=== PATIENT | female | born 1995 | race Two or more races ===

== ENCOUNTER 2022-11-03 13:24 | Emergency (ER) | payer BC, OTHER ==
[~2022-11-03] VITALS: Ht 157.5 cm; Wt 66.2 kg
[2022-11-03] MEDS ORDERED: KETOROLAC TROMETHAMINE INJ 30 MG/ML VIAL IV ONE (15:00)
[2022-11-03] MEDS ORDERED: ONDANSETRON HCL/PF 4 MG/2 ML VIAL IV ONE (15:00)
[2022-11-03] MEDS ORDERED: ALBUTEROL FS 2.5 MG/0.5 ML VIAL.NEB NEB ONE ×2 (15:00→17:00)
[2022-11-03] MEDS ORDERED: ONDANSETRON HCL/PF 4 MG/2 ML VIAL ONE (15:19)
[2022-11-03] MEDS ORDERED: KETOROLAC TROMETHAMINE 15 MG/ML VIAL ONE (15:19)
[2022-11-03 15:28] LABS: BILIRUBIN,URINE NEGATIVE (NEGATIVE); COLOR,URINE YELLOW (YELLOW); LEUKOCYTE ESTERASE ,URINE NEGATIVE (NEGATIVE); NITRITE, URINE NEGATIVE (NEGATIVE); PROTEIN,URINE 1+ mg/dl (NEGATIVE); UGLUCOSE NEGATIVE (NEGATIVE); UROBILINOGEN,URINE 0.2 EU/dL (0.2)
[2022-11-03 15:31] LABS: PH,URINE >8.5 (5.0-8.0)
[2022-11-03 15:35] LABS: BACTERIA,URINE 2+ /HPF (None Seen); RBC,URINE 0-2 /HPF (0-2); SQUAMOUS EPITHELIAL CELL,UR 21-50 /HPF (None Seen); WBC,URINE 0-2 /HPF (0-3)
--- NOTE | 2022-11-03 15:44 | NUR ---
RT NOTIFIED FOR BREATHING TREATMENT.
[2022-11-03] MEDS ORDERED: ALBUTEROL FS 2.5 MG/3 ML VIAL.NEB ONE ×2 (15:53→17:51)
[2022-11-03 16:04] LABS: BASOPHILS % (AUTO) 0.3 % (0.0-2.0); EOSINOPHILS % (AUTO) 0.3 % (0.0-6.0); HEMATOCRIT 40 % (33-45); LYMPHOCYTES # (AUTO) 3.3 K/uL (0.8-4.8); LYMPHOCYTES % (AUTO) 35.4 % (20.0-44.0); MEAN CORPUSCULAR HGB CONC 32 g/dl (31.0-36.0); MEAN CORPUSCULAR VOLUME 92 fL (82-100); MONOCYTES # (AUTO) 0.5 K/uL (0.1-1.30); MONOCYTES % (AUTO) 5.8 % (2.0-12.0); NEUTROPHILS # (AUTO) 5.5 K/uL (1.8-8.9); NEUTROPHILS % (AUTO) 58.2 % (43.0-81.0); PLATELET COUNT (AUTO) 257 K/uL (150-450); WHITE BLOOD COUNT (AUTO) 9.4 K/uL (4.3-11.0)
[2022-11-03 16:38] LABS: CALCIUM, SERUM 9.3 mg/dL (8.5-10.1); CREATININE 0.7 mg/dL (0.6-1.3); POTASSIUM 4.6 mmol/L (3.5-5.1)
[2022-11-03 16:44] LABS: ALBUMIN 4.1 g/dL (3.4-5.0); BILIRUBIN,TOTAL 0.5 mg/dL (0.2-1.0)
[2022-11-03] MEDS ORDERED: LIDOCAINE SOLN 4% 50 ML BOTTLE TP ONE (17:00)
[2022-11-03] MEDS ORDERED: predniSONE 50 MG TABLET PO ONE (17:00)
[2022-11-03] MEDS ORDERED: IBUP-1955 PO (17:33)
[2022-11-03] MEDS ORDERED: ONDA4TAB5 PO (17:33)
[2022-11-03] MEDS ORDERED: PRED50TA PO (17:33)
[2022-11-03] MEDS ORDERED: predniSONE 20 MG TABLET ONE (17:41)
--- NOTE | 2022-11-03 17:49 | NUR ---
Pt refusing additional RTx states "feel better/breathing Easier I would rather go home" Patient discharged to home in stable condition. Written and verbal after care instructions given. Patient verbalizes understanding of instruction.
[2022-11-03 17:50] VITALS: BP 120/72
== END 2022-11-03 17:51 | disposition home or self-care (01) ==
LOC: ER 13:34
DX: J98.01 Acute bronchospasm (principal); B34.9 Viral infection, unspecified
CPT/HCPCS: 99284; 96374; 71045; 96375; 85025; 84703; 81001; 36415; 80053; 94799; 94640; J2405; J1885